=== PATIENT | female | born 1980 | race Caucasian/White ===

== ENCOUNTER 2016-03-23 16:21 | Emergency (ER) | payer SELFPAY ==
[2016-03-23] MEDS ORDERED: OXYCODONE/ACETAMINOPHEN 5/325 MG TABLET ONE (16:53)
[2016-03-23] MEDS ORDERED: CYCLOBENZAPRINE HCL 10 MG TABLET ONE (16:53)
--- NOTE | 2016-03-23 17:22 | RAD ---
Name: SHAYAN LEVINE Exam: Sacrum and coccyx Comparison: None Clinical history: Slip and fall. Tailbone pain. Findings: 3 views of the sacrum and coccyx are submitted. Bone density is normal. There is no lytic or blastic lesion. Limited views of the lumbar spine SI joints hips and pubic symphysis are within normal limits. There is anterior displacement of the distal coccygeal segment. There is no suspicious mass or calcification. Impression: Anterior displacement of the distal coccygeal segment compatible with recent trauma
--- NOTE | 2016-03-23 17:24 | RAD ---
Name: SHAYAN LEVINE Exam: Lumbar spine Comparison: None Clinical history: Slip and fall. Back pain. Findings: 3 views of the lumbar spine are submitted. Bone density is normal. There are 5 nonrib-bearing lumbar vertebral bodies. There is grade 1 retrolisthesis of L5 on S1 with mild disc space narrowing. AP alignment is normal. There is no fracture. Gallbladder surgically absent. Impression: 1. Mild disc space narrowing with grade 1 retrolisthesis L5 on S1 2. No acute bony abnormality 3. Prior cholecystectomy
== END 2016-03-23 18:15 | disposition home or self-care (01) ==
LOC: ED 16:21
DX: S32.2XXA Fracture of coccyx, initial encounter for closed fracture (principal); F17.210 Nicotine dependence, cigarettes, uncomplicated; W01.0XXA Fall on same level from slipping, tripping and stumbling without subsequent striking against object, initial encounter; Z88.5 Allergy status to narcotic agent; Z88.8 Allergy status to other drugs, medicaments and biological substances
CPT/HCPCS: 72100; 72220; 99283 ×2; A9270

== ENCOUNTER 2016-04-22 17:14 | Emergency (ER) | payer SELFPAY ==
[2016-04-22] MEDS ORDERED: KETOROLAC TROMETHAMINE 15 MG/ML VIAL ONE (19:37)
[2016-04-22] MEDS ORDERED: OXYCODONE HCL 5 MG TABLET ONE (19:37)
== END 2016-04-22 19:56 | disposition home or self-care (01) ==
LOC: ED 17:14
DX: M54.5 Low back pain (principal); E03.9 Hypothyroidism, unspecified; F17.210 Nicotine dependence, cigarettes, uncomplicated; Z88.5 Allergy status to narcotic agent; Z88.8 Allergy status to other drugs, medicaments and biological substances
CPT/HCPCS: 99283 ×2; 96372; A9270; J1885

== ENCOUNTER 2016-06-08 13:00 | Emergency (ER) | payer SELFPAY ==
[2016-06-08] MEDS ORDERED: IOPAMIDOL 370 (76%) 100 ML VIAL IV ONE (13:01)
[2016-06-08] MEDS ORDERED: LACTATED RINGERS 1,000 ML ONE (13:57)
[2016-06-08] MEDS ORDERED: ONDANSETRON 4 MG/2ML 2 ML VIAL ONE ×2 (13:57→15:00)
[2016-06-08] MEDS ORDERED: MORPHINE SULFATE 4 MG/ML SYRINGE ONE ×2 (13:57→15:00)
[2016-06-08 14:01] LABS: ABSOLUTE NEUTROPHIL COUNT 6.2 K/mm3 (1.8-7.7); BASO # 0.1 K/mm3 (0.0-0.2); BASO % 0.5 % (0.2-1.0); EOS # 0.2 (0.0-0.5); EOS % 1.9 % (0.9-2.9); HEMATOCRIT 39.8 % (37.0-47.0); HEMOGLOBIN 13.2 gm/l (12.0-16.0); IMM NEUT% 0.4 % (0-1); LYMPH # 2.8 (1.0-4.8); LYMPH % 28.5 % (15-45); MEAN CELL VOLUME 100.5 fl (81.0-99.0); MEAN CORPUSCULAR HEMOGLOBIN 33.3 pg (27.0-31.0); MEAN CORPUSCULAR HGB CONC 33.2 g/dl (33.0-37.0); MEAN PLATELET VOLUME 9.6 fl (7.4-10.4); MONO # 0.6 (0.0-0.8); MONO % 6.1 % (4-12); NEUT % 62.6 % (43-75); PLATELET COUNT 300 K/mm3 (130-400); RED CELL DISTRIBUTION WIDTH 11.9 % (11.5-14.5); SPECIFIC GRAVITY 1.015 (1.001-1.030); URINE BILIRUBIN NEGATIVE (NEGATIVE); URINE BLOOD 1+ (NEGATIVE); URINE GLUCOSE (UA) NEGATIVE (NEGATIVE); URINE LEUKOCYTE ESTERASE NEGATIVE (NEGATIVE); URINE NITRITE NEGATIVE (NEGATIVE); URINE PROTEIN NEGATIVE (NEGATIVE); URINE UROBILINOGEN NORMAL (0-1 mg/dl)
[2016-06-08 14:02] LABS: URINE APPEARANCE CLEAR; URINE COLOR YELLOW
[2016-06-08 14:10] LABS: URINE BACTERIA TRACE; URINE MUCUS 1+; URINE WBC RARE /hpf
[2016-06-08 14:18] LABS: ALB/GLOB RATIO 1.3 (>1.0)
--- NOTE | 2016-06-08 15:05 | US ---
ABDOMINAL-LIMITED History: Right or quadrant pain with prior cholecystectomy. Findings: Gallbladder: Surgically absent. Biliary tree: The common hepatic duct measures 1.7 millimeters adjacent to the hepatic artery. Liver: the visualized liver is homogeneous. No masses or evidence of intra-hepatic biliary dilatation are seen. Impression: 1. Prior cholecystectomy. No evidence of significant biliary dilatation is observed.
[2016-06-08] MEDS ORDERED: HYDROMORPHONE HCL 1 MG/ML SYRINGE ONE (15:48)
--- NOTE | 2016-06-08 16:50 | CT ---
Exam Type: ABD/PELVIS W/ CON Date and Time: 06/08/2016 3:12 PM Clinical information: Right upper quadrant pain. Comparison: None Procedure: Imaging device: [employer] Aquilion [address] scanner 1 mm axial images were obtained through the abdomen and pelvis. Stacked reconstructed 3, 4 and 5 mm images were photographed in the axial coronal and sagittal planes. No oral contrast was utilized for this examination. 100 ml of Isovue-370 was injected intravenously. Exam: with intravenous contrast. FINDINGS: Lung bases:The visualized lung bases appear to be appropriate with no mass, effusion or consolidation visualized. Liver: the liver is homogeneous with no discrete abnormality visualized. No definite findings of biliary dilatation are observed. Spleen: The spleen is homogeneous and does not appear to be enlarged. Gallbladder: Surgically absent. Pancreas: Normal without enlargement or evidence of adjacent inflammatory changes. Adrenal glands: Normal without enlargement or evidence of adjacent inflammatory changes. Abdominal aorta: The aorta is of normal caliber and appears to be without significant atherosclerotic disease. Kidneys: There is a subtle low-attenuation focus involving the inferior right kidney, likely reflecting a small cyst. No evidence of hydronephrosis is visualized. Bowel structures: The visualized bowel is of normal caliber without evidence of dilatation or obstruction. No free fluid or mesenteric inflammatory changes are identified. Appendix: Likely surgically absent. Bladder: Partially decompressed. Hernia: A small metallic linear focus is identified at the level of the anterior muscular wall deep to the umbilicus. No discrete hernia is visualized. Adenopathy: No significant enlarged adenopathy is visualized. Osseous structures: Sclerotic changes are evident adjacent to the inferior aspects of both sacroiliac joints. Pelvic structures: A 3.9 cm low-attenuation focus is seen within the left aspect of the pelvis, likely reflecting an adnexal cyst. No significant free fluid is visualized. IMPRESSION: 1. Prior cholecystectomy with likely prior appendectomy. 2. A 3.9 cm suggested left adnexal cyst without significant free fluid. 3. A probable small subcentimeter right renal cyst. 4. A tiny metallic focus deep to the umbilicus at the level of the abdominal wall musculature.
== END 2016-06-08 17:34 | disposition home or self-care (01) ==
LOC: ED 13:00
DX: R10.11 Right upper quadrant pain (principal); E03.9 Hypothyroidism, unspecified; F17.210 Nicotine dependence, cigarettes, uncomplicated